=== PATIENT | male | born 1995 | race Caucasian/White ===

== ENCOUNTER 2016-11-16 11:29 | Emergency (ER) | payer SELFPAY ==
[~2016-11-16] VITALS: Ht 185.4 cm; Wt 79.5 kg
[2016-11-16 11:31] VITALS: BP 168/84; PULSE 76; TEMP 98.9
== END 2016-11-16 14:42 | disposition home or self-care (01) ==
LOC: COL.ER 11:29
DX: R51 Headache (principal); F17.210 Nicotine dependence, cigarettes, uncomplicated
CPT/HCPCS: J1885

== ENCOUNTER 2017-03-24 16:37 | Emergency (ER) | payer SELFPAY ==
[~2017-03-24] VITALS: Ht 185.4 cm; Wt 93.2 kg
[2017-03-24 16:56] VITALS: BP 140/91; TEMP 97.9
[2017-03-24 20:01] VITALS: PULSE 78
== END 2017-03-24 20:02 | disposition home or self-care (01) ==
LOC: COL.ER 16:37
DX: S56.911A Strain of unspecified muscles, fascia and tendons at forearm level, right arm, initial encounter (principal); F17.210 Nicotine dependence, cigarettes, uncomplicated; W10.9XXA Fall (on) (from) unspecified stairs and steps, initial encounter